=== PATIENT | female | born 1995 | race Caucasian/White ===

== ENCOUNTER 2019-07-20 16:02 | Outpatient (CLI) | payer OTHER ==
--- NOTE | 2019-07-20 18:20 | MRI ---
MR OF THE RIGHT KNEE WITHOUT CONTRAST: 07/20/19 INDICATION: Medial joint line tenderness. COMPARISON: None. FINDINGS: Articular cartilage is preserved. No osteochondral defect is evident. The MCL, ACL, PCL, LCLC and extensor mechanism are intact. There is a mild sized semimembranosus at the medial gastrocnemius popliteal cyst. There is a small 4.9 mm cystic abnormality seen posterior and medial to the posterior junction of the medial meniscus without evidence of adjacent discrete meniscal tear to suggest this represents a par ameniscal cyst. Lateral meniscus is intact. Bone marrow signal intensity appears within normal limits . IMPRESSION: 1. No discrete evidence of meniscal tear. 2. ACL, PCL, MCL and LCLC are intact. 3. Small Rangel's cyst. 4. Small 5 mm periarticular ganglion seen along the posteromedial aspect of the joint capsule wi thout evidence for adjacent meniscal tear. POS: [facility]
== END 2019-07-20 16:03 | disposition home or self-care (01) ==
LOC: SCSMRI 16:02
DX: M25.461 Effusion, right knee (principal); M71.21 Synovial cyst of popliteal space [Baker], right knee; M67.461 Ganglion, right knee